=== PATIENT | female | born 1995 | race Caucasian/White ===

== ENCOUNTER 2017-08-25 18:12 | Emergency (ER) | payer SELFPAY ==
[2017-08-25 18:31] VITALS: BP 127/70; BMI 22.4
[2017-08-25 19:30] LABS: BILIRUBIN,URINE NEGATIVE (NEGATIVE); BLOOD/HEMOGLOBIN,URINE 3+ (NEGATIVE); GLUCOSE, URINE NEGATIVE (NEGATIVE); KETONES,URINE NEGATIVE (NEGATIVE); LEUKOCYTE ESTERASE ,URINE 3+ (NEGATIVE); NITRITES,URINE NEGATIVE (NEGATIVE); PROTEIN,URINE NEGATIVE (NEGATIVE); UROBILINOGEN,URINE NORMAL (NORMAL)
[2017-08-25] MEDS ORDERED: TYLENOL 500 MG TAB EXTRA STRENGTH PO ONE ×2 (19:44→19:45)
[2017-08-25 20:02] LABS: APPEARANCE,URINE CLOUDY (CLEAR); BACTERIA,URINE 1+ /HPF (NEGATIVE); COLOR,URINE YELLOW (YELLOW); SQUAMOUS EPITHELIAL CELL,UR MANY /HPF (NEGATIVE)
[2017-08-25] MEDS ORDERED: TORADOL 60 MG VIAL IM ONE (20:02)
[2017-08-25] MEDS ORDERED: TORADOL 60 MG VIAL ONE (20:02)
--- NOTE | 2017-08-25 20:36 | DR.GENAD ---
HPI - PCP Primary Care Physician: nfd - Complaint/Symptoms Chief Complaint Doctors Comments: Dysuria with fever, LLQ abd pain x 1 week Chief Complaint:: llq pain for a week pain gotten worse today PAINFUL URINATIONS AND BURNING - Source History Provided: Patient - Mode of Arrival Mode of Arrival: Ambulatory - Timing Onset of Chief Complaint: 08/18/17 Came on: Gradually - Duration Duration: Since Onset How lon Duration: Days - Severity Severity: Moderate PMH - PMH Past Medical History: No Past Medical History Comment: Has Norplant for control Past Surgical History: No - Family History History of Family Medical Conditions: Yes Family Medical History: Cancer - Social History Type of Tobacco Use: Cigarettes Does any household member use tobacco: Yes Alcohol Use: None Do you use any recreational Drugs:: No Lives With: Family Lives Where: Home - infectious screening In the last 2 months have you had wt loss of >10#?: NO Have you had fever, night sweats or hemotysis?: No Have you traveled outside the country in the last 6 months?: No Isolation: Standard ROS - Review of Systems Constitutional: See HPI, Chills, Fever, Malaise Eyes: No Symptoms Reported ENTM: No Symptoms Reported Respiratoy: No Symptoms Reported Cardiovascular: No Symptoms Reported Genitourinary: Dysuria, Frequency, Pain Neurological: No Symptoms Reported Musculoskeletal: Back Pain Integumentary: No Symptoms Reported Hematologic/Lymphatic: No Symptoms Reported Endocrine: No Symptoms Reported All Other Systems: Reviewed and Negative PE - Vital Signs Vitals: Temperature 101.8 F Pulse Rate 118 Respiratory Rate 18 Blood Pressure 127/70 O2 Sat by Pulse Oximetry 97 - General Limitations: No Limitations General Appearance: Alert, In No Apparent Distress - Head Head Exam: Normal Inspection - Eyes Eye exam: Normal Appearance - ENT ENT Exam: Normal Exam - Chest Chest Inspection: Normal Inspection, Symmetric Chest Wall Rise - Respiratory Respiratory Exam: Normal Lung Sounds Bilat - Abdominal Exam Abdominal Exam: Normal Inspection, Normal Bowel Sounds, Soft, Tenderness. negative: Guarding, Rebound, Rigidity Abdominal Tenderness: LLQ - Extremities Extremities Exam: Normal Inspection, Full ROM - Back Back Exam: Normal Inspection, (L) CVA Tenderness - Psychiatric Psychiatric Exam: Normal Affect, Normal Mood - Skin Skin Exam: Warm, Dry ROR - Labs Reviewed Laboratory: Specimen Type Clean catch urine 08/25/17 19:23 Urine Color Yellow (YELLOW) 08/25/17 Urine Appearance Cloudy (CLEAR) 08/25/17: Urine pH 6.0 (5.0 - 8.0) 08/25/17 Ur Specific [place] 1.010 (1.000-1.030) 08/25/17 Urine Protein Negative (NEGATIVE) 08/25/17: Urine Glucose (UA) Negative (NEGATIVE) 08/25/17 Urine Ketones Negative (NEGATIVE) 08/25/17 Urine Occult Blood 3+ (NEGATIVE) 08/25/17 Urine Nitrite Negative (NEGATIVE) 08/25/17 Urine Bilirubin Negative (NEGATIVE) 08/25/17 Urine Urobilinogen Normal (NORMAL) 08/25/17 Ur Leukocyte Esterase 3+ (NEGATIVE) 08/25/17 Urine RBC 8-14 /HPF (NEGATIVE) 08/25/17 Urine WBC 25-35 /HPF (NEGATIVE) 08/25/17 Ur Squamous Epith Cells Many /HPF (NEGATIVE) 08/25/17: Urine Bacteria 1+ /HPF (NEGATIVE) 08/25/17 Ur Culture Indicated? Yes/culture set up 08/25/17 - Diagnosis Discharge Problem: UTI (urinary tract infection) - Discharge Plan Disposition: HOME, SELF-CARE Condition: Good Prescriptions: Nitrofurantoin Macro [Macrobid Cap 100 mg Ext Rel] 100 mg PO BID #14 cap - Follow ups/Referrals Follow ups/Referrals: [facility],None [Primary Care Provider] - 3 days - Instructions
== END 2017-08-25 20:52 | disposition home or self-care (01) ==
LOC: ER 18:44
DX: N39.0 Urinary tract infection, site not specified (principal); B96.29 Other Escherichia coli [E. coli] as the cause of diseases classified elsewhere
CPT/HCPCS: 81001; 87086; 87088; 87186; 96372; 99282; J1885